=== PATIENT | male | born 1980 | race Caucasian/White ===

== ENCOUNTER 2019-02-13 01:13 | Emergency (ER) | payer SELFPAY ==
[2019-02-13 01:31] VITALS: BP 164/80
--- NOTE | 2019-02-13 01:46 | ED Physician Documentation ---
Fall - HISTORIAN Historian: patient - HPI Stated Complaint: Fall from [place] morning of 02-12-19, Rt side pains Chief Complaint: Fall Onset: yesterday Where: other (group home) Context: other (fell off top [employer]) r: moderate Associated Symptoms:: denies: no loss of consciousness Location of Pain/Injury: neck, R shoulder, upper extremity (right wrist), lower extremity (right leg), hip (right buttock) Injury to Right Extremity: shoulder, wrist, leg Injury to Left Extremity: none - ROS CONST: no problems NEURO: denies: dizziness MS/SKIN/LYMPH: neck pain. denies: weakness EYES/ENT: denies: problems with vision CVS/RESP: denies: chest pain, shortness of breath GI/: denies: nausea, vomiting - PAST HX Past History: none Allergies/Adverse Reactions: Allergies Allergy/AdvReac Type Severity Reaction Status Date / Time Penicillins Allergy Verified 02/13/19 01:30 Home Medications: Ambulatory Orders Medication Instructions Recorded Buspirone HCl [Buspar] 10 mg PO TID 02/13/19 Dextroamphetamine/Amphetamine 20 mg PO DAILY 02/13/19 [Adderall 20 mg Tablet] Diazepam [Valium] 10 mg PO BID 02/13/19 Zolpidem Tartrate 10 mg PO HS 02/13/19 - SOCIAL HX Smoking History: non-smoker Alcohol Use: none Drug Use: none - FAMILY HX Family History: none - VITAL SIGNS Vital Signs: Vital Signs Temp Pulse Resp BP Pulse Ox 73 18 164/80 97 02/13/19 01:26 02/13/19 01:26 02/13/19 01:26 02/13/19 01:26 - REVIEWED ASSESSMENTS Nursing Assessment Reviewed: Yes Vitals Reviewed: Yes Progress - Progress Progress: 6 Patient in xray, now complaining of low back pain. Will add L-spine xray. ED Results Lab/Radiology - Radiology Radiology Impressions: cspine, lspine, wrist, pelvis, femur, shoulder xrays - negative for fracture or dislocation. - Orders Orders: ED Orders Category Date Time Status C SPINE 2 OR 3 VIEWS [RAD] Stat Exams 02/13/19 Ordered PELVIS AP 1 OR 2 VIEWS [RAD] Stat Exams 02/13/19 Ordered RT FEMUR 2 VIEWS [RAD] Stat Exams 02/13/19 Ordered SHOULDER 2 VIEWS OR MORE [RAD] Stat Exams 02/13/19 Ordered WRIST 3 VIEWS OR MORE [RAD] Stat Exams 02/13/19 Ordered Fall Physical Exam - Physical Exam General Appearance: no acute distress, alert Head: non-tender, no swelling, no obvious injury Neck: non-tender, painless ROM Eye: DEEPAK ENT: no dental injury, no oral injury Resp/CVS: chest non-tender, breath sounds nml, no resp. distress Abdomen: soft, normal bowel sounds, non-tender Neuro: oriented x3, motor nml, mood/affect nml Skin: color nml, no rash Back: normal inspection, no vertebral tenderness Extremities: atraumatic, pelvis stable, nml ROM, bony point-tenderness (right ischial tuberosity, right femur, right wrist) Joint: nml ROM, Nml gait/weight bearing - Heaven Coma Score Eyes Open: Spontaneous Speech: Oriented Motor: Obeys Commands Discharge Clincal Impression: Musculoskeletal pain Referrals: Primary Doctor,No [Primary Care Provider] - 2 Days Additional Instructions: 1. Ibuprofen 600mg every 6 hours and/or Tylenol 650mg every 4 hours as needed for pain. You may take these together for better pain control. 2. Apply ice/heat to affected areas as needed for pain 3. Apply icy hot, bengay, biofreeze or aspercreme to affected areas as needed for comfort 4. Stay active 5. Follow up with PCP within 1 week 6. Return to ER for new or worsening symptoms Condition: Stable Disposition: 01 HOME, SELF-CARE Decision to Admit: NO Date of Decison to Admit: 02/13/19 Decision Time: 03:02
--- NOTE | 2019-02-13 02:33 | Diagnostic Imaging Report ---
PATIENT MR#: [id number] PATIENT PATIENT NAME: JOSEPH HERNANDEZ DATE OF : 1980 REFERRING PHYSICIAN: Romy Del Real EXAM DATE: 02/13/2019 ACCESSION NUMBER: [id number] EXAM DESCRIPTION: SHOULDER 2 VIEWS OR MORE EXAMINATION: SHOULDER 2 VIEWS OR MORE HISTORY: FELL OFF TOP BUNK, RT SHOULDER PAIN (Hx) / - Note time : 02/13/2019 2:27:38 AM User : Balwinder Ignacio fell off top bunk, rt shoulder pain (DICOM Hx) (DICOM Hx) COMPARISON: None FINDINGS: The osseous structures are intact without acute fracture. The glenohumeral and acromioclavicular join ts are in anatomic alignment with maintained joint spaces. IMPRESSION: No acute fracture or dislocation identified. Read by: Trenton Dye Transcribed by: Transcribed Date: Electronically signed by: Trenton Dye Date signed: 02/13/2019 2:32:40 AM
--- NOTE | 2019-02-13 02:33 | Diagnostic Imaging Report ---
PATIENT MR#: [id number] PATIENT PATIENT NAME: JOSEPH HERNANDEZ DATE OF : 1980 REFERRING PHYSICIAN: Romy Del Real EXAM DATE: 02/13/2019 ACCESSION NUMBER: [id number] EXAM DESCRIPTION: PELVIS AP 1 OR 2 VIEWS EXAMINATION: PELVIS AP 1 OR 2 VIEWS HISTORY: FELL OFF TOP BUNK, RIGHT SIDED PAIN (Hx) / - Note time : 02/13/2019 2:27:13 AM User : Balwinder Ignacio fell of top bunk, right buttock pain (DICOM Hx) (DICOM Hx) COMPARISON: None FINDINGS: No acute fracture is identified. The femoral heads appear well-seated within their respective acetabu la. The hip joint spaces are preserved. The pubic symphysis is intact. The sacroiliac joints are symmetric. IMPRESSION: No acute fracture identified. Read by: Trenton Dye Transcribed by: Transcribed Date: Electronically signed by: Trenton Dye Date signed: 02/13/2019 2:32:39 AM
--- NOTE | 2019-02-13 02:34 | Diagnostic Imaging Report ---
PATIENT MR#: [id number] PATIENT PATIENT NAME: JOSEPH HERNANDEZ DATE OF : 1980 REFERRING PHYSICIAN: Romy Del Real EXAM DATE: 02/13/2019 ACCESSION NUMBER: [id number] EXAM DESCRIPTION: C SPINE 2 OR 3 VIEWS EXAMINATION: C SPINE 2 OR 3 VIEWS HISTORY: FELL OFF TOP BUNK, NECK PAIN (Hx) / Note time : 02/13/2019 2:28:05 AM User : Balwinder Ignacio fell off top bunk, neck pain ------ (DICOM Hx) (DICOM Hx) COMPARISON: None FINDINGS: C7 is not well demonstrated on the lateral image. The vertebral bodies are normally aligned. No acute fracture or compression deformity is identified. The intervertebral disc spaces are maintained. The predental int erval and prevertebral soft tissues are normal. IMPRESSION: No acute fracture identified. Read by: Trenton Dye Transcribed by: Transcribed Date: Electronically signed by: Trenton Dye Date signed: 02/13/2019 2:33:39 AM
--- NOTE | 2019-02-13 02:34 | Diagnostic Imaging Report ---
PATIENT MR#: [id number] PATIENT PATIENT NAME: JOSEPH HERNANDEZ DATE OF : 1980 REFERRING PHYSICIAN: Romy Del Real EXAM DATE: 02/13/2019 ACCESSION NUMBER: [id number] EXAM DESCRIPTION: RT FEMUR 2 VIEWS EXAMINATION: RT FEMUR 2 VIEWS HISTORY: FELL OFF TOP BUNK, RT LEG PAIN (Hx) / Not e time : 02/13/2019 2:28:24 AM User : Balwinder Ignacio fell off top bunk, right leg pain (DICOM Hx) (DICOM Hx) COMPARISON: None FINDINGS: No acute fracture is identified. No soft tissue swelling is seen. IMPRESSION: No acute fracture identified. Read by: Trenton Dye Transcribed by: Transcribed Date: Electronically signed by: Trenton Dye Date signed: 02/13/2019 2:33:40 AM
--- NOTE | 2019-02-13 02:35 | Diagnostic Imaging Report ---
PATIENT MR#: [id number] PATIENT PATIENT NAME: JOSEPH HERNANDEZ DATE OF : 1980 REFERRING PHYSICIAN: Romy Del Real EXAM DATE: 02/13/2019 ACCESSION NUMBER: [id number] EXAM DESCRIPTION: WRIST 3 VIEWS OR MORE EXAMINATION: WRIST 3 VIEWS OR MORE HISTORY: FELL OFF TOP BUNK, RT WRIST PAIN (Hx) / N ote time : 02/13/2019 2:28:46 AM User : Balwinder Ignacio fell off top bunk, rt wrist pain (DICOM Hx) (DICOM Hx) COMPARISON: None FINDINGS: There is no evidence of acute fracture or dislocation. There has been prior internal fixation of a ch ronic healed scaphoid fracture consisting of a single intact screw.There is a mild radiocarpal joint space narrowi ng. Bone density is normal. No soft tissue swelling is seen. IMPRESSION: No acute fracture or dislocation identified. Read by: Trenton Dye Transcribed by: Transcribed Date: Electronically signed by: Trenton Dye Date signed: 02/13/2019 2:34:39 AM
--- NOTE | 2019-02-13 02:51 | Diagnostic Imaging Report ---
PATIENT MR#: [id number] PATIENT PATIENT NAME: JOSEPH HERNANDEZ DATE OF : 1980 REFERRING PHYSICIAN: Romy Del Real EXAM DATE: 02/13/2019 ACCESSION NUMBER: [id number] EXAM DESCRIPTION: L SPINE 2 OR 3 VIEWS EXAMINATION: L SPINE 2 OR 3 VIEWS HISTORY: FALL, BACK PAIN, PT COMPLAINING OF LOW TO MID BACK PAIN (Hx) / Note time : 02/13/2019 2:45:58 AM User : Balwinder Ignacio FALL, BACK PAIN (DICOM Hx) (DICOM Hx) COMPARISON: None FINDINGS: The vertebral bodies are normally aligned. No acute fracture or compression deformity is identified. The intervertebral disc spaces are maintained. IMPRESSION: No acute fracture identified. Read by: Trenton Dye Transcribed by: Transcribed Date: Electronically signed by: Trenton Dye Date signed: 02/13/2019 2:50:39 AM
--- NOTE | 2019-02-13 03:27 | Diagnostic Imaging Report ---
PATIENT MR#: [id number] PATIENT PATIENT NAME: JESUS HERNANDEZ DATE OF : 1980 REFERRING PHYSICIAN: Romy Del Real EXAM DATE: 02/13/2019 ACCESSION NUMBER: [id number] EXAM DESCRIPTION: CT BRAIN W/O CONTRAST EXAMINATION: CT BRAIN W/O CONTRAST Note time : 02/13/2019 3:20:47 AM User : Balwinder Ignacio FALL, PT STATES HIT POSTERIOR HEAD, NAUSEA, VOMITING (DICOM Hx) (D ICOM Hx) TECHNIQUE: CT of the head was performed without contrast according to standard protocol. COMPARISON: None FINDINGS: No acute intra- or extra-axial fluid collections are identified. The ventricles are of normal size, s hape, and morphology. The basilar cisterns are patent. No mass effect or midline shift is seen. The ryan-white matter differentiation is normal. The visible portions of the orbits, paranasal sinuses, and mastoids appear normal. No acute fracture is identified. IMPRESSION: 1. No acute intracranial process. Read by: Trenton Dye Transcribed by: Transcribed Date: Electronically signed by: Trenton Dye Date signed: 02/13/2019 3:26:39 AM
== END 2019-02-13 03:30 | disposition home or self-care (01) ==
LOC: ED 01:13
DX: M79.18 Myalgia, other site (principal)
CPT/HCPCS: 70450; 72040; 72100; 72170; 73030; 73110; 73552; 99282